=== PATIENT | male | born 1985 | race Caucasian/White ===

== ENCOUNTER 2018-09-20 11:57 | Emergency (ER) | payer MEDICAID, SELFPAY ==
[~2018-09-20] VITALS: Ht 175.3 cm; Wt 90.2 kg
[2018-09-20] MEDS ORDERED: BACITRACIN ZINC OINT 500U/GM, 0.9 GM ONE (12:21)
[2018-09-20] MEDS ORDERED: HYDROcodone/APAP 5/325 TABLET ONE (13:24)
[2018-09-20] MEDS ORDERED: HYDROcodone/APAP 5/325 TABLET PO ONE (13:30)
--- NOTE | 2018-09-20 13:36 | NUR ---
PT. WAS MEDICATED FOR PAIN ORDERED. PT. HAS A SPLINT IN PLACE WITH CMS CHECKS INTACT. PT. WAS GIVEN DISCHARGE INSTRUCTIONS AND SCRIPTS WITH UNDERSTANDING VERBALIZED ALONG WITH WILLINGNESS TO COMPLY. PT. WAS AMBULATORY TO THE DISCHARGE DESK.
[2018-09-20 13:39] VITALS: BP 118/70
== END 2018-09-20 13:45 | disposition home or self-care (01) ==
LOC: ED 13:30
DX: S60.022A Contusion of left index finger without damage to nail, initial encounter (principal); S60.222A Contusion of left hand, initial encounter; J45.909 Unspecified asthma, uncomplicated; F17.200 Nicotine dependence, unspecified, uncomplicated; Z79.899 Other long term (current) drug therapy; X58.XXXA Exposure to other specified factors, initial encounter; Y93.89 Activity, other specified; Y92.009 Unspecified place in unspecified non-institutional (private) residence as the place of occurrence of the external cause; Y99.8 Other external cause status
CPT/HCPCS: 29125; 99283

== ENCOUNTER 2018-12-01 17:11 | Emergency (ER) | payer MEDICAID ==
[~2018-12-01] VITALS: Ht 175.3 cm; Wt 86.4 kg
[2018-12-01] MEDS ORDERED: ALBUTEROL/IPRATROPIUM 2.5MG/0.5MG, 3 ML NPPB ONE (17:30)
--- NOTE | 2018-12-01 17:50 | NUR ---
PT AMBULATORY TO ROOM 19 W/ C/O EXPIRATORY WHEEZSES AND DIFFICULTY BREATHING X 3 DAYS. PT STATES HE GOT SICK 1 WK AGO AND GOT WORSE 3 DAYS AGO. STATES HE HAS GONE THROUGH MOST OF HIS ALBUTEROL INHALER IN A SPAN OF 2 DAYS. PT RESTING ON [facility]. MONITORS APPLIED.
--- NOTE | 2018-12-01 17:51 | NUR ---
SPOKE W/ CODY FROM RT TO PERFORM BREATHING TX.
[2018-12-01] MEDS ORDERED: ALBUTEROL/IPRATROPIUM 2.5MG/0.5MG, 3 ML ONE (17:56)
[2018-12-01] MEDS ORDERED: PLEASE ENTER WEIGHT MC SCH (18:00)
[2018-12-01] MEDS ORDERED: KETOROLAC 30 MG/1 ML IM ONE (18:00)
--- NOTE | 2018-12-01 18:04 | NUR ---
RT AT BEDSIDE.
[2018-12-01] MEDS ORDERED: KETOROLAC 30 MG/1 ML ONE (18:06)
[2018-12-01 18:23] LABS: BASOPHILS # (AUTO) 0.09 x10^3/uL (0-0.1); BASOPHILS % (AUTO) 1 % (0-1); EOSINOPHILS # (AUTO) 0.29 x10^3/uL (0-0.4); EOSINOPHILS % (AUTO) 2 % (1-7); LYMPHOCYTES % (AUTO) 23 % (22-44); MD NO; MEAN CORPUSCULAR HGB CONC 34.6 g/dL (33.2-36.2); MEAN CORPUSCULAR VOLUME 86.8 fL (81-97); MEAN PLATELET VOLUME 8.1 fL (7.4-10.4); MONOCYTES # (AUTO) 1.41 x10^3/uL (0.2-0.8); MONOCYTES % (AUTO) 8 % (2-9); NEUTROPHILS # (AUTO) 11.96 x10^3/uL (1.8-6.8); NEUTROPHILS % (AUTO) 67 % (42-75); PLATELET COUNT 342 x10^3/uL (130-400); RED BLOOD COUNT 5.53 x10^6/uL (4.38-5.82); RED CELL DISTRIBUTION WIDTH 12.9 % (9.4-14.8)
--- NOTE | 2018-12-01 18:30 | NUR ---
Leonela RN note: Pt states that breathing tx helped "a little" but still c/o diffuse body aches. Pt speaking in full sentences, frequent non-productive cough. Continuous heart, oxygen and BP monitors are in place, all safety measures observed.
[2018-12-01 18:32] LABS: CHLORIDE 108 mmol/L (98-107)
[2018-12-01 18:58] LABS: ALBUMIN 4.4 g/dL (3.4-5.0); ALKALINE PHOSPHATASE 82 U/L (45-117); ANION GAP 12 mmol/L (5-15); BILIRUBIN,TOTAL 0.4 mg/dL (0.2-1.0); CALCIUM 9.7 mg/dL (8.5-10.1); CREATININE 1.07 mg/dL (0.7-1.3); TOTAL PROTEIN 8.7 g/dL (6.4-8.2)
[2018-12-01] MEDS ORDERED: OXYcodone/APAP 5/325MG TABLET PO ONE (19:00)
--- NOTE | 2018-12-01 19:05 | NUR ---
REPORT RECEIVED FROM SHANIQUA HOPKINS.
--- NOTE | 2018-12-01 19:09 | NUR ---
REPORT GIVEN TO KATHY PAT RN.
[2018-12-01] MEDS ORDERED: OXYcodone/APAP 5/325MG TABLET ONE (19:12)
--- NOTE | 2018-12-01 19:14 | NUR ---
pt medicated per emar for pain. pt tolerated well.
[2018-12-01] MEDS ORDERED: AZITHROMYCIN 500 MG TABLET ONE (19:20)
--- NOTE | 2018-12-01 19:26 | NUR ---
PT MEDICATED PER EMAR. PT TOLERATED WELL.
[2018-12-01] MEDS ORDERED: AZITHROMYCIN 500 MG TABLET PO ONE (19:30)
--- NOTE | 2018-12-01 19:37 | NUR ---
PT'S PAIN LEVEL REDUCED TO 5/10 AT THIS TIME.
[2018-12-01 20:01] LABS: ALANINE AMINOTRANSFERASE 35 U/L (12-78)
[2018-12-01 20:03] VITALS: BP 140/63
--- NOTE | 2018-12-01 20:04 | NUR ---
PT GIVEN DC INSTRUCTIONS AND SCRIPTS. PT EDUCATED REGARDING DC MEDICATIONS. PT'S AOX4. RESPS EVEN AND UNLABORED. PT AMB TO DC WITH STEADY GAIT. NO ACUTE DISTRESS AT DC.
== END 2018-12-01 20:05 | disposition home or self-care (01) ==
LOC: ED 17:56
DX: J45.41 Moderate persistent asthma with (acute) exacerbation (principal); F17.200 Nicotine dependence, unspecified, uncomplicated
CPT/HCPCS: 36415; 71046; 80053; 85025; 94640; 94664; 96372; 99284; J1885; J7512; J7620